=== PATIENT | female | born 1960 | race Caucasian/White ===

== ENCOUNTER → 2017-01-03 | Outpatient (CLI) | payer OTHER ==
[~2017-01-03] MED LIST: ALBUTEROL SULFAT3 M3 IH; B-12250 MCG PO; CALCIUM600 M2 PO; CIPRO 500MG TA500 MG PO; ESTRADERM0.05 MG/24 TD; FISH OIL1 IU PO; FLONASE NASAL S16 GM NS; METRONIDAZOLE500 MG PO; MULTIPLE VITAMI1 CAP PO; NORCO 325 MG-51 TA1 PO; PROAIR HFA0.09 MG/AC IH; RT ADVAIR 128 DISKUS IH; SINGULAIR 110 MG/TAB PO; ZOFRAN4 M1 PO; [UNRECOGNIZED DRUG - OTHER] PO
== END ==
LOC: MC.RAD 09:33
DX: Z12.31 Encounter for screening mammogram for malignant neoplasm of breast (principal); N63 Unspecified lump in breast

== ENCOUNTER → 2017-01-05 | Outpatient (CLI) | payer OTHER | LOC: MC.RAD 13:14 | DX: N63 Unspecified lump in breast (principal); N60.02 Solitary cyst of left breast; N64.89 Other specified disorders of breast ==

== ENCOUNTER → 2018-03-16 | Outpatient (CLI) | payer OTHER | LOC: COL.RAD 09:57 | DX: R41.82 Altered mental status, unspecified (principal) | CPT/HCPCS: A9585 ==

== ENCOUNTER 2018-08-15 08:28 | Emergency (ER) | payer SELFPAY ==
[~2018-08-15] VITALS: Ht 167.6 cm; Wt 72.7 kg
[2018-08-15 08:37] VITALS: BP 121/73
[2018-08-15] MEDS ORDERED: GLUCOPHAGE XR500 M1 PO (08:51)
[2018-08-15] MEDS ORDERED: LEXAPRO 10MG10 MG PO (08:51)
[2018-08-15 10:32] VITALS: PULSE 67; TEMP 98.4
== END 2018-08-15 10:20 | disposition home or self-care (01) ==
LOC: COL.ER 08:28
DX: S99.921A Unspecified injury of right foot, initial encounter (principal); S99.911A Unspecified injury of right ankle, initial encounter; E10.40 Type 1 diabetes mellitus with diabetic neuropathy, unspecified; Z90.89 Acquired absence of other organs; Z90.710 Acquired absence of both cervix and uterus; Z79.51 Long term (current) use of inhaled steroids; X50.0XXA Overexertion from strenuous movement or load, initial encounter; Y92.59 Other trade areas as the place of occurrence of the external cause
CPT/HCPCS: Q4045

== ENCOUNTER 2018-10-21 09:13 | Emergency (ER) | payer BC ==
[~2018-10-21] VITALS: Ht 170.2 cm; Wt 72.7 kg
[~2018-10-21 09:13] MED LIST changes: +GLUCOPHAGE XR500 M1 PO; +LEXAPRO 10MG10 MG PO
[2018-10-21] MEDS ORDERED: RT ALBUTER2.5 MG/0.5 INH (09:25)
[2018-10-21] MEDS ORDERED: PROAIR HFA0.09 MG/AC INH (09:25)
[2018-10-21] MEDS ORDERED: PREDNISONE10 MG PO (09:26)
[2018-10-21 09:39] LABS: BASO # 0.1 (0.0-0.2); BASO % 0.7 % (0.0-2.0); EOS % 0.2 % (0-4.0); GRAN # 12.3 (1.4-6.5); GRAN % 84.3 % (42.2-75.2); HEMATOCRIT 37.2 % (37.0-47.0); HEMOGLOBIN 12.4 g/dl (12.5-16.0); LYMPH # 1.2 (1.2-3.4); LYMPH % 8.3 % (20.0-51.0); MEAN CELL VOLUME 98 fl (80.0-100.0); MEAN CORPUSCULAR HEMOGLOBIN 33 pg (27.0-31.0); MEAN CORPUSCULAR HGB CONC 33 g/dl (33.0-37.0); MEAN PLATELET VOLUME 9.4 fl (7.4-10.4); MONO # 0.9 (0.1-0.6); PLATELET COUNT 298 K/mm3 (130-400); RED BLOOD COUNT 3.81 M/mm3 (4.10-5.30); REDCELL DISTRIBUTION WIDTH-CV 13.1 % (11.5-14.5)
[2018-10-21 09:49] LABS: ALBUMIN 4.2 gm/dL (3.5-5.0); BILIRUBIN,TOTAL 0.2 mg/dL (0.0-1.0); CALCIUM 9.6 mg/dL (8.4-10.2); CREATININE, serum 0.75 (0.52-1.25); POTASSIUM 3.5 mmol/L (3.4-5.0)
[2018-10-21] MEDS ORDERED: PREDNISONE20 MG PO (10:32)
[2018-10-21] MEDS ORDERED: ZITHROMAX Z PA250 MG PO (10:32)
[2018-10-21 10:41] VITALS: BP 123/72; PULSE 83; TEMP 97.2
== END 2018-10-21 10:43 | disposition home or self-care (01) ==
LOC: COL.ER 09:13
PROVIDERS: Family Medicine
DX: J45.909 Unspecified asthma, uncomplicated (principal); Z79.51 Long term (current) use of inhaled steroids
CPT/HCPCS: J2930; J7030

== ENCOUNTER → 2019-02-21 | Outpatient (CLI) | payer BC ==
[~2019-02-21] MED LIST changes: +PREDNISONE10 MG PO; +PREDNISONE20 MG PO; +PROAIR HFA0.09 MG/AC INH; +RT ALBUTER2.5 MG/0.5 INH; +ZITHROMAX Z PA250 MG PO
== END ==
LOC: MC.RAD 09:47
DX: Z12.31 Encounter for screening mammogram for malignant neoplasm of breast (principal); N63.20 Unspecified lump in the left breast, unspecified quadrant

== ENCOUNTER 2019-07-10 08:06 | Observation (INO) | payer BC ==
[~2019-07-10] VITALS: Ht 170.2 cm; Wt 77.7 kg
[2019-07-10 08:29] LABS: BASO % 0.6 % (0.0-2.0); EOS % 0.2 % (0-4.0); GRAN # 2.6 (1.4-6.5); GRAN % 53.6 % (42.2-75.2); HEMATOCRIT 43.6 % (37.0-47.0); HEMOGLOBIN 14.3 g/dl (12.5-16.0); LYMPH # 1.6 (1.2-3.4); LYMPH % 33.7 % (20.0-51.0); MEAN CELL VOLUME 100 fl (80.0-100.0); MEAN CORPUSCULAR HEMOGLOBIN 33 pg (27.0-31.0); MEAN CORPUSCULAR HGB CONC 33 g/dl (33.0-37.0); MEAN PLATELET VOLUME 9.7 fl (7.4-10.4); MONO # 0.6 (0.1-0.6); MONO % 11.5 % (1.7-9.3); PLATELET COUNT 276 K/mm3 (130-400); RED BLOOD COUNT 4.36 M/mm3 (4.10-5.30); REDCELL DISTRIBUTION WIDTH-CV 12.7 % (11.5-14.5)
[2019-07-10 08:43] LABS: ALANINE AMINOTRANSFERASE 57 U/L (9-52); ALBUMIN 4.5 gm/dL (3.5-5.0); ALKALINE PHOSPHATASE 68 U/L (50-136); ANION GAP 11 mmol/L (7-16); AST,SGOT 55 U/L (15-37); BILIRUBIN,TOTAL 0.3 mg/dL (0.0-1.0); BLOOD UREA NITROGEN 15 mg/dL (7-17); CALCIUM 9.1 mg/dL (8.4-10.2); CARBON DIOXIDE 26 mmol/L (22-30); CHLORIDE 106 mmol/L (98-107); CREATININE, serum 0.79 (0.52-1.25); GLUCOSE 102 mg/dL (74-106); LIPASE 211 U/L (23-300); POTASSIUM 3.7 mmol/L (3.4-5.0); SODIUM 143 mmol/L (137-145); TOTAL PROTEIN 7.6 gm/dL (6.4-8.2)
[2019-07-10 08:44] LABS: C-REACTIVE PROTEIN < 0.5 mg/dL (0.0-0.9)
[2019-07-10 08:52] LABS: TROPONIN-I < 0.012 ng/mL (0.000-0.035)
[2019-07-10 08:55] LABS: ARTERIAL BLD GAS O2 SATURATION 97.1 % (92-100); ARTERIAL BLD GAS TCO2 CT 20.7; ARTERIAL BLOOD GAS BASE EXCESS 1.5 (-2-2); ARTERIAL BLOOD GAS HCO3 20.1 meq/L (22-26); ARTERIAL BLOOD GAS PO2 75.9 mmHg (80-100)
[2019-07-10 08:56] LABS: ARTERIAL BLOOD GAS PCO2 19.1 mmHg (35-45); ARTERIAL BLOOD GAS pH 7.64 (7.35-7.45)
[2019-07-10 10:01] LABS: COLLECTION METHOD CLEAN CATCH
[2019-07-10 10:08] LABS: MUCOUS Present /lpf; PH 6 (5-8); SQUAMOUS EPITHELIAL 0-2 /hpf; URINE APPEARANCE Clear; URINE BACTERIA Rare /hpf; URINE BILIRUBIN Negative (NEGATIVE); URINE BLOOD Negative (NEGATIVE); URINE COLOR Yellow; URINE GLUCOSE Negative (NEGATIVE); URINE KETONE Trace (NEGATIVE); URINE LEUKOCYTE ESTERASE Negative (NEGATIVE); URINE NITRATE Negative (NEGATIVE); URINE PROTEIN(semi-quant) Negative (NEGATIVE); URINE RBC 0-2 /hpf; URINE UROBILINOGEN Negative (NEGATIVE)
[2019-07-10] MEDS ORDERED: MEDROL4 MG PO (10:22)
[2019-07-10] MEDS ORDERED: PROBIOTIC-SUNMARK (10:23)
[2019-07-10] MEDS ORDERED: NEURONTIN300 MG/CAP PO (10:24)
[2019-07-10] MEDS ORDERED: B-121000 MCG PO (11:05)
[2019-07-10 11:19] VITALS: BP 124/66; PULSE 73; TEMP 98.7
--- NOTE | 2019-07-10 11:46 | NUR ---
PATIENT WAS ADMITTED TO ROOM 359. PATIENT IS LAYING IN BED, VERY FATIGUED. PATIENT IS ALERT AND COOPERATIVE. PATIENT HAS A DRY HACKING COUGH. GONE OVER HER HOME MEDICATIONS WITH HER AND VERIFYED THEM IN THE COMPUTER. SHE IS ON DROPLET PRECAUTIONS DUE TO INFLLUZENA A POSITIVE.
--- NOTE | 2019-07-10 15:15 | NUR ---
PATIENT IS LAYING IN BED WITH BY HER SIDE. SHE IS NOT COMPLAINING OF ANY NAUSEA, VOMITING, DIZZINESS, OR SHORTNESS OF BREATH AT THIS TIME. PATIENT STILL HAS A DRY HACKY COUGH WITH NO SPUTUM. VITALS ALL HAVE BEEN NORMAL DURING HER STAY THUS FAR. PATIENT'S ONLY COMPLAINT AT THIS TIME IS THAT SHE IS TIRED.
--- NOTE | 2019-07-10 16:39 | NUR ---
PATIENT HAS HAD A GOOD DAY. NOT REPORTING ANY PAIN. PATIENT HAS BEEN USING BEDPAN IN THE BED AND ROLLS HERSELF FAILY WELL. WITH THE NEW INSULIN ORDERS HER BLOOD GLUCOSE IS UNDER 300 NOW. VITALS HAVE BEEN STABLE THROUGHOUT THE DAY. NO REPORTS OF ANY COMPLAINTS TODAY
--- NOTE | 2019-07-10 16:47 | NUR ---
PATIENT IS RESTING IN BED AT THIS TIME. NO TEMPERATURE SINCE BEING ADMITTED ON THE FLOOR. PATIENT HAS HAD NO COMPLAINTS SINCE HER ARRIVAL. VITALS HAVE BEEN STABLE WITH NO DISGREPENCIES. PATIENT HAS NO VOIDED SINCE HER ARRIVAL. CALL LIGHT WITHIN REACH AND INSTRUCTED TO CALL IF NEEDING ANY HELP.
--- NOTE | 2019-07-10 17:14 | NUR ---
PATIENT HAS BEEN TAKING HERSELF TO THE BATHROOM TODAY. SHE HAS BEEN IN THERE 4 TIMES, REPORTED BY HER.
[2019-07-10 17:43] VITALS: BP 126/76; PULSE 66; TEMP 98.9
[2019-07-10 21:39] VITALS: BP 141/67; PULSE 95; TEMP 98.6
--- NOTE | 2019-07-10 22:00 | NUR ---
Shift assessment complete. Patient in chair, ambulating to bed. Denies pain. States the RT tx causes her to be shaky. Steady when ambulating. Prn cough medicine given. Denies further needs at this time. Will continue to monitor.
[2019-07-11 02:02] VITALS: BP 137/67; PULSE 71; TEMP 98.4
[2019-07-11 06:02] VITALS: BP 134/73; PULSE 106; TEMP 98.8
[2019-07-11 07:16] VITALS: BP 140/72; PULSE 77; TEMP 98.5
--- NOTE | 2019-07-11 07:27 | NUR ---
Assessment complete. Pt resting in bed, A&O x 4. Breath sounds CTAB. BS active x 4. Pt denies pain at this time. IVF's infusing per orders through right AC site, occasional issues with occlusion, pt asking about stopping the fluids. No further needs reported. Call light in reach.
[2019-07-11 07:29] LABS: BASO % 0.2 % (0.0-2.0); GRAN # 2.3 (1.4-6.5); GRAN % 53.6 % (42.2-75.2); LYMPH # 1.4 (1.2-3.4); MEAN CELL VOLUME 99 fl (80.0-100.0); MEAN CORPUSCULAR HGB CONC 33 g/dl (33.0-37.0); MEAN PLATELET VOLUME 9.8 fl (7.4-10.4); MONO # 0.6 (0.1-0.6); PLATELET COUNT 248 K/mm3 (130-400); RED BLOOD COUNT 3.37 M/mm3 (4.10-5.30); REDCELL DISTRIBUTION WIDTH-CV 12.6 % (11.5-14.5)
[2019-07-11 07:35] LABS: CALCIUM 8.2 mg/dL (8.4-10.2); CREATININE, serum 0.6 (0.52-1.25); MAGNESIUM 1.7 mg/dL (1.6-2.3); POTASSIUM 3.3 mmol/L (3.4-5.0)
[2019-07-11 07:41] LABS: HEMATOCRIT 33.2 % (37.0-47.0); MEAN CORPUSCULAR HEMOGLOBIN 32 pg (27.0-31.0)
[2019-07-11 07:42] LABS: HEMOGLOBIN 10.9 g/dl (12.5-16.0)
[2019-07-11 11:50] VITALS: BP 136/66; PULSE 89; TEMP 97.7
[2019-07-11] MEDS ORDERED: LEVAQUIN 750MG750 M1 PO (12:37)
[2019-07-11] MEDS ORDERED: TAMIFLU 75MG75 MG PO (12:39)
[2019-07-11] MEDS ORDERED: PREDNISONE10 MG PO (12:42)
--- NOTE | 2019-07-11 12:49 | NUR ---
Report given to JESSI Johnson.
--- NOTE | 2019-07-11 15:45 | NUR ---
Discharge paperwork reviewed with patient and . Patient verbalized an understanding to follow doctors orders. IV removed, tip intact, patient tolerated well. Bandaid applied. Patient instructed to wear mask outside to vehicle. Nurse walked with patient to vehicle. No further needs expressed from patient. Personal belongings with patient.
== END 2019-07-11 15:42 | disposition home or self-care (01) ==
LOC: COL.ER 08:06 → MEDICAL 10:00
PROVIDERS: Emergency Medicine; ADMIT Internal Medicine
DX: J11.1 Influenza due to unidentified influenza virus with other respiratory manifestations (principal); J45.909 Unspecified asthma, uncomplicated; E87.6 Hypokalemia; E11.9 Type 2 diabetes mellitus without complications; Z79.84 Long term (current) use of oral hypoglycemic drugs; Z88.0 Allergy status to penicillin; Z88.5 Allergy status to narcotic agent; Z88.2 Allergy status to sulfonamides; Z79.51 Long term (current) use of inhaled steroids; Z90.710 Acquired absence of both cervix and uterus
CPT/HCPCS: G0378; J1650; J2060; J2930; J3475; J7030; J7512

== ENCOUNTER 2020-05-28 13:37 | Outpatient (CLI) | payer BC ==
[~2020-05-28] VITALS: Ht 170.2 cm; Wt 75.0 kg
[~2020-05-28 13:37] MED LIST changes: +B-121000 MCG PO; +LEVAQUIN 750MG750 M1 PO; +MEDROL4 MG PO; +NEURONTIN300 MG/CAP PO; +PROBIOTIC-SUNMARK; +TAMIFLU 75MG75 MG PO
[2020-05-28 15:01] VITALS: BP 125/75; PULSE 85; TEMP 99.4
[2020-05-28 15:31] VITALS: BP 129/77; PULSE 110
[2020-05-28 16:01] VITALS: BP 129/77; PULSE 79
[2020-05-28 16:34] VITALS: BP 145/86; PULSE 89; TEMP 98.8
[2020-05-28 17:00] VITALS: BP 126/73; PULSE 83
[2020-05-28 17:28] VITALS: BP 130/83; PULSE 83; TEMP 98.5
== END 2020-05-28 17:29 | disposition home or self-care (01) ==
LOC: EUO 13:37
DX: U07.1 COVID-19 (principal)
CPT/HCPCS: J7050

== ENCOUNTER → 2020-10-23 | Outpatient (CLI) | payer BC | LOC: MC.RAD 13:21 | DX: Z12.31 Encounter for screening mammogram for malignant neoplasm of breast (principal) ==

== ENCOUNTER → 2021-12-01 | Outpatient (CLI) | payer BC | LOC: MC.RAD 14:40 | DX: Z12.31 Encounter for screening mammogram for malignant neoplasm of breast (principal) ==

== ENCOUNTER → 2024-03-11 | Outpatient (CLI) | payer BC | LOC: MC.RAD 09:20 | DX: Z12.31 Encounter for screening mammogram for malignant neoplasm of breast (principal) ==